=== PATIENT | female | born 1955 | race Caucasian/White ===

== ENCOUNTER 2019-07-07 15:28 | Inpatient (IN) ==
[2019-07-07] MEDS ORDERED: NS 1,000 ML IV PRN (15:54)
--- NOTE | 2019-07-07 15:55 | Diag Imaging Result Doc PS360 ---
EXAM: CT HEAD W/O CONTRAST HISTORY: stroke like s/s TECHNIQUE: CT head without contrast COMPARISON: 01/16/2019 FINDINGS: No parenchymal hemorrhage. No epidural or subdural hematoma. No subarachnoid hemorrhage. No mass identified on this noncontrasted exam. No hydrocephalus. No sinus opacification. IMPRESSION: No hemorrhage. Negative brain CT without contrast. This exam was performed using automated exposure control, adjustment of mA or kV according to patient size, and/or use of iterative reconstruction technique. Electronically signed by Liban Noel 07/07/2019 3:53 PM
--- NOTE | 2019-07-07 16:11 | Diag Imaging Result Doc PS360 ---
EXAM: CHEST-PORTABLE 07/07/2019 HISTORY: stroke like symptoms TECHNIQUE: AP portable semierect at 1604 COMMENT: The inspiration is suboptimal. Considering the degree of inspiration compared to 01/18/2019 there has been no significant change. IMPRESSION: Stable chest. Electronically signed by Giles Moore 07/07/2019 4:08 PM
[2019-07-07 17:17] LABS: AGAP 12; ALB/GLOB RATIO 1.5; ALBUMIN 3.6 g/dL (3.5-5.0); ALKALINE PHOSPHATASE 67 U/L (32-104); BUN 18 mg/dL (8-22); CALCIUM 8.8 mg/dL (8.8-10.2); CHLORIDE 104 mmol/L (98-107); COSMO 273; CREATININE 0.9 mg/dL (0.5-0.9); ESTIMATED GFR > 60; GLUCOSE 90 mg/dL (70-104); GOT 65 U/L (10-30); GPT 31 U/L (10-36); POTASSIUM 4.2 mmol/L (3.5-5.1); SODIUM 136 mmol/L (136-145); TCO2 20 mmol/L (25-35); TOTAL BILIRUBIN 0.34 mg/dL (0.20-1.00)
--- NOTE | 2019-07-07 18:04 | EKG Report ---
Test Performed on : 07/07/2019 3:51:51 PM Test Reason : Stroke like symptoms Blood Pressure : / mmHG Vent. Rate : 084 BPM Atrial Rate : 084 BPM P-R Int : 198 ms QRS Dur : 086 ms QT Int : 370 ms P-R-T Axes : 037 008 -25 degrees QTc Int : 437 ms Normal sinus rhythm. Nonspecific ST and T wave abnormality Abnormal ECG When compared with ECG of 16-JAN-2019 01:13, ST now depressed in Inferior leads Nonspecific T wave abnormality now evident in Inferior leads Nonspecific T wave abnormality, worse in Anterolateral leads Unconfirmed Result
--- NOTE | 2019-07-07 19:10 | PROVIDER DOCUMENTATION ---
This chart was entered by Otto Man Scribe, acting as scribe for Demarcus Sandhu MD. HPI-Neurological Disorder - General Source: patient, EMS - History of Present Illness-Neuro Severity: reports: moderate Onset/Duration: reports: 1-3 hours ago Timing: reports: still present Context: reports: found unresponsive by custodial staff (Home health, Physical therapist) Character of Altered Mental Status: reports: disoriented, confused, trouble concentrating, decreased responsiveness Any recent trauma/injury?: reports: other (Unsure) Character of Deficits: reports: altered sensation, impaired speech, decreased ability to stand, decreased ability to walk Cognitive Baseline: alert but confused Gait Baseline: walks without assistance Associated Symptoms: reports: decreased ability to walk or stand, confusion, slurred speech, weakness Similar Symptoms Previously?: No Recently seen or treated by another doctor?: No <Demarcus Sandhu - Last Filed: 07/07/19 19:09> <Cory Terry - Last Filed: 07/07/19 23:17> - General Chief Complaint: Stroke-Like Symptoms Stated Complaint: stroke like sx Time Seen by Provider: 07/07/19 15:44 Allergies/Adverse Reactions: Patient Allergies Allergy/AdvReac Type Severity Reaction Status Date / Time No Known Allergies Allergy Verified 07/07/19 18:37 Home Medications: Home Medication List Medication Instructions Recorded Confirmed Last Taken Type Clopidogrel Bisulfate [Plavix] 75 mg PO DAILY 11/16/13 04/13/18 04/09/18 History Levothyroxine [Synthroid] 50 mcg PO DAILY 04/01/15 04/10/18 04/10/18 09:00 History ATORVAstatin [Lipitor] 20 mg PO HS 01/03/18 04/10/18 04/09/18 History Divalproex E.r. [Depakote ER] 1,500 mg PO QHS 01/03/18 04/10/18 04/09/18 History Insulin Lispro [Humalog] 1 dose SQ DIRECTED 01/03/18 04/13/18 01/03/18 08:00 History Metformin HCl 500 mg PO BID 01/03/18 04/10/18 04/10/18 09:00 History Paroxetine HCl 40 mg PO DAILY 01/03/18 04/10/18 04/10/18 09:00 History Primidone 50 mg PO BID 01/03/18 04/10/18 04/09/18 History Duloxetine HCl [Cymbalta] 30 mg PO BID 04/10/18 04/13/18 04/09/18 History Furosemide 20 mg PO DAILY 04/10/18 04/10/18 04/10/18 09:00 History Gabapentin 600 mg PO QHS 04/10/18 04/10/18 04/09/18 History Pantoprazole Sodium 40 mg PO DAILY 04/10/18 04/10/18 04/10/18 History Quetiapine Fumarate 600 mg PO QHS 04/10/18 04/13/18 04/09/18 History Omeprazole [Prilosec] 20 mg PO DAILY@0700 04/13/18 04/13/18 Unknown History Albuterol 2.5MG/Ipratrop 0.5MG 3 ml INH Q2H PRN PRN neb 04/19/18 Unknown Rx [Duoneb (A & A)] Albuterol 2.5MG/Ipratrop 0.5MG 3 ml INH RTQ4H neb 04/19/18 Unknown Rx [Duoneb (A & A)] Benzonatate [Tessalon] 100 mg PO 0900,1500,2100 #40 cap 04/19/18 Unknown Rx Bisacodyl [Dulcolax] 10 mg NC DAILY supp 04/19/18 Unknown Rx Budesonide/Formoterol Inhaler 2 puff INH RTBID inhaler 04/19/18 Unknown Rx [Symbicort 160/4.5 Microgm Inhaler] Chlorhexidine Gluconate [Peridex] 15 ml MT BID udc 04/19/18 Unknown Rx Clonazepam 0.5 mg PO QHS #30 tab 04/19/18 Unknown Rx Dimethicone/Oxybenzone [place] 1 gm TOP PRN PRN stick 04/19/18 Unknown Rx [Blistex Medicated Hernandez Lip [place]] Duloxetine [Cymbalta] 30 mg PO BID capsule 04/19/18 Unknown Rx Ferrous Sulfate 325 mg PO DAILY tablet 04/19/18 Unknown Rx Loratadine [Claritin] 10 mg PO DAILY tablet 04/19/18 Unknown Rx Metoprolol Succinate E.r. [Toprol 50 mg PO BID tablet 04/19/18 Unknown Rx Xl] Montelukast [Singulair] 10 mg PO HS tablet 04/19/18 Unknown Rx Oxycodone I.r. [Oxy Ir] 5 mg PO Q3H PRN PRN #40 tab 04/19/18 Unknown Rx Phenol 1.4% [place] [Chloraseptic 1 applic MT PRN PRN bottle 04/19/18 Unknown Rx [place]] Polyethylene Glycol 3350 [Miralax] 17 gm PO BID powder, packet 04/19/18 Unknown Rx - History of Present Illness-Neuro Nature of Presenting Problem: Pt is a 64 yof who presents to the ED via EMS with a CC of stroke like symptoms. EMS reports the pt was supposed to have home health knee rehabilitation today and states the physical therapist called one hour prior to her appointment. The physical therapist states the pt's voice was normal during their phone conversation. Upon arrival to the pt's house, EMS reports the Physical therapist found the pt lying behind the door unresponsive. EMS reports the physical therapist called EMS at approximately 1330. EMS reports they found the pt confused, with slurred speech and left sided weakness. Upon examination in the ED the pt had bilateral pronator drift in her upper extremities and weak lifting, bilaterally, in her lower extremities. The pt also has an abrasion to the right foot, EMS states it is from her fall at home. (Demarcus Sandhu) Review of Systems - Adult - REVIEW OF SYSTEMS - ADULT Constitutional: reports: see HPI Eyes: reports: see HPI Ears, Nose, Mouth & Throat: reports: no symptoms reported Cardiovascular: reports: no symptoms reported Respiratory: reports: no symptoms reported Gastrointestinal: reports: no symptoms reported Genitourinary: reports: no symptoms reported Musculoskeletal: reports: see HPI, joint pain Integumentary: reports: no symptoms reported Neurological: reports: see HPI, slurred speech Psychiatric: reports: no symptoms reported Endocrine: reports: no symptoms reported Hematologic/Lymphatic: reports: no symptoms reported Allergic/Immunologic: reports: no symptoms reported All Other Systems: Reviewed and Negative <Demarcus Sandhu - Last Filed: 07/07/19 19:09> Past History - Adult - PAST MEDICAL HISTORY-ADULT Review of Records: reports: Old Records Reviewed, Nursing Assessment Review, Medications Reviewed, Social history reviewed & non-contributory. Major Childhood Illnesses: reports: denies history Cardiovascular: reports: HTN, hyperlipidemia, other (2 stents) Respiratory: reports: denies history Gastrointestinal: reports: GERD Obstetrical/Gynecological: reports: denies history Genitourinary: reports: kidney disease Musculoskeletal: reports: chronic pain Neurological: reports: denies history Psychiatric: reports: depression Endocrine/Immune: reports: Diabetes, thyroid disorder Other Conditions: reports: other (chronic neck and back pain.) - PRIOR SURGERIES/PROCEDURES Surgical/Procedure History: reports: cardiac stent, hysterectomy, tonsillectomy, other (2 cardiac stents) - PRIOR HOSPITALIZATIONS Prior Hospitalizations: reports: none - IMMUNIZATION STATUS Childhood Immunizations: See Nurse Assessment Flu Vaccine: See Nurse Assessment - FAMILY HISTORY Family History: reviewed, not pertinent - SOCIAL HISTORY Smoking: non-smoker, quit greater than 1 year Substance Use: none/never, denies Alcohol Use Frequency: never <Demarcus Sandhu - Last Filed: 07/07/19 19:09> Physical Exam- Neurological - Physical Exam-Neuro Exam Limited by: Pt's condition Initial Vital Signs Reviewed: Yes General Appearance: mild distress, slow to respond Eye Exam: bilateral eye: PERRL HENMT: moist mucous membranes Head Injury: no evidence of injury Neck: non-tender, full range of motion, other (Limited due to pt's condition) Respiratory: chest non-tender, lungs clear, normal breath sounds, no pleuratic chest pain, no respiratory distress Cardiovascular: normal peripheral pulses, regular rate, rhythm, no edema, no gallop, no JVD Abdominal Exam: non tender, soft Extremity: erythema, other (Abrasion to the right foot; Limited due to pt's condition) [facility] consultant Exam: abnormal speech, other (Limited due to pt's condition) Motor/Sensory: pronator drift (R), pronator drift (L), weak motor strength RLE, weak motor strength LLE Neurologic: sensory deficit Integumentary: normal color, warm/dry <Demarcus Sandhu - Last Filed: 07/07/19 19:09> Progress - PLAN OF CARE/RESULTS Result Diagrams: 07/07/19 16:03 07/07/19 16:03 - EKG 1 Time of EKG reading by physician:: 15:56 EKG Read and Signed by:: Demarcus Sandhu EKG Interpretation (*Must complete 3 of following elements*): Abnormal (Nonspecific ST and T wave abnormality) Rate: 84 Rhythm: NSR [place]: normal QRS: normal NC Interval: normal ST Wave: non-specific ST changes - CHANGE OF SHIFT REPORT (ED Provider) 1 Report Given and Care Transferred to:: [facility] Time of Transfer: 19:09 <Demarcus Sandhu - Last Filed: 07/07/19 19:09> - PLAN OF CARE/RESULTS Result Diagrams: 07/07/19 19:55 07/07/19 16:03 <Cory Terry - Last Filed: 07/07/19 23:17> - PLAN OF CARE/RESULTS Progress/Plan/Lab Results: Vital Signs - 8 hr 07/07/19 15:49 07/07/19 15:50 07/07/19 15:51 Temperature Pulse Rate 84 85 Respiratory Rate 14 23 Blood Pressure 88/56 O2 Sat by Pulse Oximetry 95 92 L 07/07/19 15:56 07/07/19 16:00 07/07/19 16:10 Temperature Pulse Rate 84 84 83 Respiratory Rate 11 L 22 11 L Blood Pressure 98/63 O2 Sat by Pulse Oximetry 96 96 95 07/07/19 16:20 07/07/19 16:30 07/07/19 16:39 Temperature 97.6 F Pulse Rate 82 82 83 Respiratory Rate 17 10 L 16 Blood Pressure 98/63 O2 Sat by Pulse Oximetry 96 98 95 07/07/19 16:40 07/07/19 16:49 07/07/19 16:50 Temperature Pulse Rate 82 83 82 Respiratory Rate 10 L 14 10 L Blood Pressure 96/62 O2 Sat by Pulse Oximetry 97 96 96 07/07/19 17:00 07/07/19 17:02 07/07/19 17:10 Temperature Pulse Rate 82 83 83 Respiratory Rate 20 18 13 Blood Pressure 94/65 O2 Sat by Pulse Oximetry 91 L 98 96 07/07/19 17:20 07/07/19 17:30 07/07/19 17:32 Temperature Pulse Rate 82 83 83 Respiratory Rate 20 9 L 9 L Blood Pressure 115/82 O2 Sat by Pulse Oximetry 93 L 96 96 07/07/19 17:40 07/07/19 17:50 07/07/19 18:00 Temperature Pulse Rate 83 84 83 Respiratory Rate 11 L 21 13 Blood Pressure O2 Sat by Pulse Oximetry 95 93 L 97 07/07/19 18:03 07/07/19 18:10 07/07/19 18:20 Temperature Pulse Rate 84 85 87 Respiratory Rate 22 14 18 Blood Pressure O2 Sat by Pulse Oximetry 88 L 95 89 L 07/07/19 18:27 07/07/19 18:30 07/07/19 18:32 Temperature Pulse Rate 86 86 86 Respiratory Rate 18 15 13 Blood Pressure 108/79 122/78 O2 Sat by Pulse Oximetry 97 100 99 07/07/19 18:35 07/07/19 19:02 07/07/19 20:00 Temperature 97.7 F Pulse Rate 85 84 69 Respiratory Rate 14 16 18 Blood Pressure 108/79 133/75 O2 Sat by Pulse Oximetry 100 98 07/07/19 21:14 Temperature Pulse Rate Respiratory Rate Blood Pressure 114/91 O2 Sat by Pulse Oximetry Laboratory Results - last 24 hr 07/07/19 07/07/19 07/07/19 16:03 16:03 16:03 WBC Cancelled RBC Cancelled Hgb Cancelled Hct Cancelled MCV Cancelled MCH Cancelled MCHC Cancelled RDW Std Deviation Cancelled Plt Count Cancelled MPV Cancelled Immature Gran % (Auto) Cancelled Neut % (Auto) Cancelled Lymph % (Auto) Cancelled [place] % (Auto) Cancelled Eos % (Auto) Cancelled Baso % (Auto) Cancelled Immature Gran # (Auto) Cancelled Neut # (Auto) Cancelled Lymph # (Auto) Cancelled [place] # (Auto) Cancelled Eos # (Auto) Cancelled Baso # (Auto) Cancelled Corrected WBC (Man) Cancelled PT Cancelled INR Cancelled PTT (Actin FS) Cancelled Sodium 136 Potassium 4.2 Chloride 104 Carbon Dioxide 20 L Anion Gap 12 BUN 18 Creatinine 0.9 Estimated GFR/1.73 m2 > 60 BUN/Creatinine Ratio 20 Glucose 90 POC Glucose Calculated Osmolality 273 Calcium 8.8 Total Bilirubin 0.34 AST 65 H ALT 31 Alkaline Phosphatase 67 Troponin T Total Protein 6.0 L Albumin 3.6 Globulin 2.4 Albumin/Globulin Ratio 1.5 Urine Source Urine Color Urine Turbidity Urine pH Ur Specific [place] Urine Protein Ur Glucose (Stick) Ur Ketones (Stick) Urine Blood Urine Nitrite Urine Bilirubin Urobilinogen Dipstick Urine Leukocytes Urine WBC (Auto) Urine RBC (Auto) U Epithel Cells (Auto) Urine Bacteria (Auto) Urine Opiates Screen Ur Oxycodone Screen Ur Methadone, Qual Ur Barbiturates Screen Ur Phencyclidine Scrn Ur Amphetamines Screen U Benzodiazepines Scrn Urine Cocaine Screen U Cannabinoids Screen 07/07/19 07/07/19 07/07/19 16:03 16:44 19:40 WBC RBC Hgb Hct MCV MCH MCHC RDW Std Deviation Plt Count MPV Immature Gran % (Auto) Neut % (Auto) Lymph % (Auto) [place] % (Auto) Eos % (Auto) Baso % (Auto) Immature Gran # (Auto) Neut # (Auto) Lymph # (Auto) [place] # (Auto) Eos # (Auto) Baso # (Auto) Corrected WBC (Man) PT INR PTT ([place] FS) Sodium Potassium Chloride Carbon Dioxide Anion Gap BUN Creatinine Estimated GFR/1.73 m2 BUN/Creatinine Ratio Glucose POC Glucose 92 Calculated Osmolality Calcium Total Bilirubin AST ALT Alkaline Phosphatase Troponin T 0.025 Total Protein Albumin Globulin Albumin/Globulin Ratio Urine Source CATH Urine Color YELLOW Urine Turbidity CLEAR Urine pH 6.0 Ur Specific [place] 1.010 Urine Protein NEGATIVE Ur Glucose (Stick) NEGATIVE Ur Ketones (Stick) NEGATIVE Urine Blood NEGATIVE Urine Nitrite NEGATIVE Urine Bilirubin NEGATIVE Urobilinogen Dipstick NORMAL Urine Leukocytes MODERATE A Urine WBC (Auto) 20-40 A Urine RBC (Auto) <10 U Epithel Cells (Auto) <10 Urine Bacteria (Auto) 4+ Urine Opiates Screen Ur Oxycodone Screen Ur Methadone, Qual Ur Barbiturates Screen Ur Phencyclidine Scrn Ur Amphetamines Screen U Benzodiazepines Scrn Urine Cocaine Screen U Cannabinoids Screen 07/07/19 07/07/19 19:40 19:55 WBC 8.80 RBC 3.45 L Hgb 10.7 L Hct 31.6 L MCV 91.6 MCH 31.0 MCHC 33.9 RDW Std Deviation 14.6 H Plt Count 212 MPV 11.0 H Immature Gran % (Auto) 0.8 H Neut % (Auto) 47.0 Lymph % (Auto) 32.2 [place] % (Auto) 18.8 H Eos % (Auto) 1.0 Baso % (Auto) 0.2 Immature Gran # (Auto) 0.07 H Neut # (Auto) 4.14 Lymph # (Auto) 2.83 [place] # (Auto) 1.65 H Eos # (Auto) 0.09 Baso # (Auto) 0.02 Corrected WBC (Man) PT INR PTT ([place] FS) Sodium Potassium Chloride Carbon Dioxide Anion Gap BUN Creatinine Estimated GFR/1.73 m2 BUN/Creatinine Ratio Glucose POC Glucose Calculated Osmolality Calcium Total Bilirubin AST ALT Alkaline Phosphatase Troponin T Total Protein Albumin Globulin Albumin/Globulin Ratio Urine Source Urine Color Urine Turbidity Urine pH Ur Specific [place] Urine Protein Ur Glucose (Stick) Ur Ketones (Stick) Urine Blood Urine Nitrite Urine Bilirubin Urobilinogen Dipstick Urine Leukocytes Urine WBC (Auto) Urine RBC (Auto) U Epithel Cells (Auto) Urine Bacteria (Auto) Urine Opiates Screen PRESUMPTIVE POSITIVE A Ur Oxycodone Screen NONE DETECTED Ur Methadone, Qual NONE DETECTED Ur Barbiturates Screen PRESUMPTIVE POSITIVE A Ur Phencyclidine Scrn NONE DETECTED Ur Amphetamines Screen NONE DETECTED U Benzodiazepines Scrn NONE DETECTED Urine Cocaine Screen NONE DETECTED U Cannabinoids Screen NONE DETECTED Orders Category Date Time Status Cardiac Monitoring DIRECTED Care 07/07/19 15:54 Active Finger Stick Blood Sugar (ED) DIRECTED Care 07/07/19 15:54 Active Misc. NRSG Communication Order DIRECTED Care 07/07/19 15:54 Active Saline Loc NOW Care 07/07/19 15:54 Active CHEST-PORTABLE [RAD] Stat Exams 07/07/19 15:[address] HEAD W/O CONTRAST [CT] Stat Exams 07/07/19 15:32 Completed CBC WITH ELECTRONIC DIFF [HEME] Stat Lab 07/07/19 19:55 Completed COMPREHENSIVE METABOLIC PANEL [CHEM] Stat Lab 07/07/19 16:03 Completed PROTIME WITH INR [COAG] Stat Lab 07/07/19 17:20 Ordered PTT [COAG] Stat Lab 07/07/19 17:20 Ordered TROPONIN T Stat Lab 07/07/19 16:03 Completed URINALYSIS W/POSS RFLX CULT [URINALYSIS] Stat Lab 07/07/19 19:40 Completed URINE CULTURE [RM] Routine Lab 07/07/19 20:11 Received URINE DRUG SCREEN Stat Lab 07/07/19 19:40 Completed 0.9% Sodium Chloride Inj [Ns] 1,000 ml Med 07/07/19 15:54 Active IV 75 mls/hr EKG [EKG] Stat Ther 07/07/19 15:54 Draft She ws accessed in [facility], filled 60 [place] 10 mg on 02/08, 03/08, 04/05, ,, ,, and 07/01 (Demarcus Sandhu) Departure - Departure Date of Disposition Decision: 07/07/19 Certified Medical Emergency: Emergent <Demarcus Sandhu - Last Filed: 07/07/19 19:09> - Departure Time of Disposition Decision: 23:16 - Critical Care Note This patient required my direct & personal management of CC.: No <Cory TerryTracee - Last Filed: 07/07/19 23:17> - Departure DIAGNOSIS: Syncope Qualifiers: Syncope type: unspecified Qualified Code(s): R55 - Syncope and collapse Disposition: ADMITTED INPATIENT 09 Condition: Stable Additional Freetext Instructions: ED Follow Up Instructions: You have been treated by a care provider in the Emergency Department. These instructions are being provided to you so you can have an understanding of how to care for yourself upon discharge. Upon discharge from the Emergency Depa rtment, you are responsible for making arrangements for follow-up care by a physician of your choice. Take all prescribed medications as directed. Return to the Emergency Department immediately for any new or worsening symptoms. You may call the Physician Referral phone number at [phone] to obtain a list of Physicians who are taking new patients. Referrals and Follow-Ups: Hill Hilario MD [Primary Care Provider] - Attestation - Physician/ MARSHA Attestation Patient care was provided by Advanced Practice Provider:: No The physician spent face to face time with patient:: Yes Advanced Practice Provider documentation review:: Supervising physician onsite and consulted in the evaluation and care of this patient. The physician did have a face to face encounter with the patient. <Demarcus Sandhu - Last Filed: 07/07/19 19:09> - NIH Stroke Scale Level of Consciousness: 1-Drowsy, but arousable with minimal stimulation LOC Questions (ask month and age): 1-Answers One Correctly LOC Commands (ask to open & close eyes;make a fist, let go): 0-Obeys Both Correctly Best Gaze (horizontal eye movement): 0-Normal Visual (use finger movement, counting or visual threat): 0-No Visual Loss Facial Palsy (show teeth or raise eyebrows & close eyes tght: 0-Symmetrical Mo vement Motor Function-left arm: 0-Normal Motor Function-right arm: 0-Normal Motor Function-left le-Normal Motor Function-right le-Normal Limb Ataxia([id number], or heel to mckeon): 0-No Ataxia Sensory(pin prick to face,arms,trunk,legs-compare side/side): 0-No Ataxia Best Language(name item/read sentence.Ex-Down to Earth): 0-No Aphasia Dysarthria(Pt read words or say words Ex.Mama,Tip-Top,Thanks: 1-Mild-Mod Slurring Words Extinction and Inattention: 0-Normal <Demarcus Sandhu - Last Filed: 07/07/19 19:09> Stroke tPA Guidelines - Inclusion Criteria for IV tPA 18 years old or older: Yes Ischemic stroke with measurable deficit: No Onset <3 hours ago *OR* 3-4.5 hours ago: Yes - Exclusion Criteria for IV tPA Evidence of intracranial hemorrhage on CT: No Presentation suggest SAH: No CT reveals defined area of hypodensity: No Evidence of AVM, neoplasm, aneurysm: No Seizure at stroke onset: Unable to Obtain Active internal bleeding or acute trauma: Unable to Obtain Platelet Count Less Than 100,000: No Heparin Within Last 48 HRS (PTT >Lab normal limits): No INR > 1.7 (warfarin use): No Arterial Puncture Within Last 7 Days: No Lumbar Puncture Within Last 7 Days: No - Additional Exclusion Criteria for IV tPA Patient older than 80: No - Relative Contraindications to IV tPA CT reveals extensive area of infarct (>1/3 MCA territory): No Major Surgery or Serious Trauma In Previous 14 Days: No AMI within 3 months: No Gastrointestinal or Urinary Tract hemorrhage in Past 21 Days: No Post - AMI pericarditis: No Blood Glucose Less Than 50 mg/dl or Greater Than 400 mg/dl: No <Demarcus Sandhu - Last Filed: 07/07/19 19:09> This chart was documented by the indicated scribe, (Otto Man, Scribe) and accurately reflects the services I performed and decisions made by , Demarcus Sandhu MD, as attested by the provider's signature.
[2019-07-07 19:51] LABS: URINE SOURCE CATH
[2019-07-07 19:55] LABS: BILIRUBIN URINE NEGATIVE (NEGATIVE); BLOOD URINE NEGATIVE (NEGATIVE); COLOR YELLOW; GLUCOSE URINE NEGATIVE (NEGATIVE); KETONE URINE NEGATIVE (NEGATIVE); LEUKOCYTES URINE MODERATE (NEGATIVE); NITRITE URINE NEGATIVE (NEGATIVE); PROTEIN URINE NEGATIVE (NEGATIVE); TURBIDITY URINE CLEAR (CLEAR); UROBILINOGEN URINE NORMAL (NORMAL)
[2019-07-07 19:57] LABS: UR EPITHELIAL CELLS <10 /HPF (<10); URINE BACTERIA 4+ /HPF; URINE RBC <10 /HPF (<10); URINE WBC 20-40 /HPF (<10)
[2019-07-07 20:00] LABS: BASO# 0.02 X1000 (0.0-0.2); BASO% 0.2 % (0.0-0.8); EOS# 0.09 X1000 (0.0-0.7); HEMATOCRIT 31.6 % (37.0-47.0); HEMOGLOBIN 10.7 g/dL (12.0-16.0); IMM GRAN# 0.07 X1000 (0.0-0.04); IMM GRAN% 0.8 % (0.0-0.5); LYMPH# 2.83 X1000 (1.2-3.4); LYMPH% 32.2 % (20.5-51.1); MCHC 33.9 g/dL (33-37); MCV 91.6 FL (81-99); MONO# 1.65 X1000 (0.11-0.59); MONO% 18.8 % (1.7-9.3); NEUT# 4.14 X1000 (1.4-6.5); PLT 212 X1000 (130-400); RBC 3.45 XMIL (4.2-5.4); RDW 14.6 % (11.5-14.5)
[2019-07-07 20:25] LABS: UR AMPHETAMINES QUAL NONE DETECTED (NONE DETECT); UR BARBITUATES QUAL PRESUMPTIVE POSITIVE (NONE DETECT); UR BENZODIAZEPIN QUAL NONE DETECTED (NONE DETECT); UR CANNABINOIDS QUAL NONE DETECTED (NONE DETECT); UR COCAINE QUAL NONE DETECTED (NONE DETECT); UR METHADONE QUAL NONE DETECTED (NONE DETECT); UR OPIATES QUAL PRESUMPTIVE POSITIVE (NONE DETECT); UR OXYCODONE QUAL NONE DETECTED (NONE DETECT); UR PCP QUAL NONE DETECTED (NONE DETECT)
--- NOTE | 2019-07-08 01:12 | HISTORY AND PHYSICAL ---
PRIMARY CARE PHYSICIAN: Dr. Hill Hilario. REASON FOR ADMISSION: Fall. PRESENT ILLNESS: Ms. Stephany Garcia is a 64-year-old woman with past medical history of type 2 diabetes, hypothyroidism, coronary artery disease status post PCI, hypertension, paroxysmal ventricular tachycardia, bipolar disorder, anxiety. I must state for the record that the patient is an extremely poor historian and there are huge discrepancies with this patient's history versus the history given by the home health agent. It is riddled with many inconsistencies, so I would employ anybody to take this history with a warehouse of salt. According to the patient, she heard that her home health nurse was at the door and she tried to get to the door, and missed her footing, hit her head against the door and what follows after this is somewhat very confusing. She said the home health agent was banging at the door and she was banging back and eventually some how she opened the door for him and he got onto the chair, and moved from her to another chair, which was uncomfortable. She said she was fully aware and alert when the EMS picked her up and brought her to the hospital. Other than having a little headache, and pain in her knees and foot, she has no other complaints. She denies any antecedent palpitations, chest pain, or shortness of breath. She denies any focal weakness, numbness, or tingling. On the other hand, the home health agent says that she opened the door and found the patient was unresponsive and called EMS, and it was stated that EMS concurred with the story of the home health agent and patient was unresponsive. On arrival to the ER, she had slurred speech and very confused for the first 30 minutes. Currently, she is back to her baseline. She denies any focal symptoms of a neurological nature. REVIEW OF SYSTEMS: No dysuria. No hesitancy or genitourinary complaints. No GI complaints. No upper respiratory complaints. No polyuria or polydipsia. Otherwise, a very limited review of systems. ALLERGIES: No known allergies. MEDICATIONS: Have not been reconciled. FAMILY HISTORY: Brother has heart disease. Nobody with diabetes in the family. SURGICAL HISTORY: Hysterectomy. SOCIAL HISTORY: Lives alone. Does not smoke, drink, or use drugs. IMAGING DATA: 1. Electrocardiogram reviewed by me showed normal sinus rhythm, probably nonspecific ST-wave changes in the inferolateral leads. 2. CT head showed notable acute intracranial process. 3. Chest film, poor inspiratory effort but no gross findings. LABORATORY WORK: White count 8,000, hemoglobin and hematocrit 10 and 31, platelets 212,000. Normal differential. BUN 18, creatinine 0.9. AST 65, ALT 31. UDS positive for barbiturates and opiates. Urinalysis 4+ bacteria, 20 to 40 white cells. PHYSICAL EXAMINATION: GENERAL: Obese, middle-aged woman who appears older than stated age. VITAL SIGNS: Blood pressure is 135/75, heart rate 84, respirations 16, temperature 97.7 degrees, O2 sats 98% on room air. GENERAL APPEARANCE: She is alert and oriented to person, time, and a little bit off on place. HEENT: Head is normocephalic, atraumatic. Eyes: SIA, EOMI. Anicteric and not pale. ENT: Oropharynx is within normal limits. No central cyanosis. NEUROLOGICAL: Cranial nerves 2-12 are grossly intact. No gross focal deficits. No focal sensory motor deficits. The patient has a slight tremor in her left arm when it is outstretched. No pronator drift. Power is 4/4 all extremities. NECK: Supple. No JVD or carotid bruit. No thyromegaly. CHEST: Clear when auscultated both lung parsons. CARDIOVASCULAR: First and 2nd heart sounds heard. No gallops, murmurs, rubs. Rhythm is regular. ABDOMEN: Protuberant, soft, nontender. No mass, megaly. Bowel sounds normal. Rectal exam deferred at this time. EXTREMITIES: Patient has good distal pulse volumes, which are symmetrical and regular. No edema, clubbing, or peripheral cyanosis. SKIN: Intact. No breakdown, lesions, or erythema. MUSCULOSKELETAL: Grossly normal. ASSESSMENT: 1. Very probable syncopal episode versus generalized seizure event. 2. Coronary artery disease. 3. Hypothyroidism. 4. Hypertension. 5. Type 2 diabetes. 6. Pyuria. 7. Anemia of chronic inflammation. PLAN: Patient will be admitted to our step-down unit, PVC. It is more likely that this could be cardiac in nature due to the fact she has underlying cardiac disease and she has a prior history of paroxysmal ventricular tachycardia. Her old records suggest she takes a lot of antipsychotic medications which could induce QT prolongation and ventricular tachycardia. We will monitor patient's telemetry for the next 48 hours and will repeat another echocardiogram, and suggest may be that the patient undergo a stress test, which may induce arrhythmia. If patient's cardiac workup is unrevealing, an EEG may be repeated. I did review her old records, and it this appears to be very identical to the event she had in 2016, albeit the location being different, i.e. a grocery store. At that time, she had an echo and EEG, and they were negative. Still does not rule out the possibility of an epileptiform etiology, although for me, cardiac disease is higher up. It is also possible the patient could be misusing her home medications inappropriately, she does have opioids and barbiturates in her urine drug screen, so that possibility should be entertained also. We will do anemia workup amongst other things, and hydrate patient and see how she responds to this. Will consult Cardiology, and if cardiac workup is unrevealing, then consider Neurology consult. We will also order an MRI to make sure she does not have any structural brain disease. cc: Hazel Braden MD
[2019-07-08] MEDS ORDERED: ZOFRAN IV PRN (01:58)
[2019-07-08] MEDS ORDERED: MELATONIN PO ONE (01:58)
[2019-07-08] MEDS ORDERED: TYLENOL PO PRN (01:58)
[2019-07-08] MEDS ORDERED: NS 1,000 ML IV SCH (01:58)
[2019-07-08] MEDS: LOVENOX SUBQ SCH (02:33)
[2019-07-08 02:51] LABS: AGAP 10; BUN 12 mg/dL (8-22); CALCIUM 8.9 mg/dL (8.8-10.2); CHLORIDE 103 mmol/L (98-107); COSMO 276; CREATININE 0.7 mg/dL (0.5-0.9); ESTIMATED GFR > 60; GLUCOSE 110 mg/dL (70-104); POTASSIUM 3.3 mmol/L (3.5-5.1); SODIUM 138 mmol/L (136-145); TCO2 25 mmol/L (25-35)
[2019-07-08] MEDS ORDERED: BLISTEX MEDICATED BERRY LIP BALM TOP PRN (04:26)
[2019-07-08 07:16] LABS: BASO# 0.03 X1000 (0.0-0.2); BASO% 0.3 % (0.0-0.8); EOS# 0.13 X1000 (0.0-0.7); EOS% 1.5 % (0.0-10.0); HEMATOCRIT 32.8 % (37.0-47.0); HEMOGLOBIN 10.8 g/dL (12.0-16.0); IMM GRAN# 0.05 X1000 (0.0-0.04); IMM GRAN% 0.6 % (0.0-0.5); LYMPH# 2.36 X1000 (1.2-3.4); LYMPH% 27.1 % (20.5-51.1); MCHC 32.9 g/dL (33-37); MCV 91.1 FL (81-99); MONO# 1.81 X1000 (0.11-0.59); MONO% 20.8 % (1.7-9.3); MPV 10.9 FL (7.4-10.4); NEUT# 4.34 X1000 (1.4-6.5); NEUT% 49.7 % (42.2-75.2); PLT 208 X1000 (130-400); RDW 14.9 % (11.5-14.5); WBC 8.72 X1000 (4.8-10.8)
[2019-07-08 07:30] LABS: HEMOGLOBIN A1C 5.4 % (4.8-6.0)
[2019-07-08 07:31] LABS: MAGNESIUM 1.7 mg/dL (1.5-2.7)
[2019-07-08 07:49] LABS: TSH 4.67 uIUmL (0.27-4.20)
--- NOTE | 2019-07-08 09:59 | PROGRESS NOTE ---
DATE: 07/08/2019 SUBJECTIVE: This morning Ms. Garcia refers to be doing a little better. Still complaining of pain in the right knee and the ankle. Ms. Garcia was admitted yesterday mainly because of fall and slurred speech and concern for possible stroke. Upon presenting to the emergency department, she was noted to have a blood pressure of 88/56 with normal pulse. OBJECTIVE: Vital Signs: This morning, her blood pressure is up to 135/57, pulse of 83, respirations 16, temperature is 97.6 degrees. The patient is saturating about 94% on room air. General: Ms. Garcia is a 64-year-old, elderly female. She is in bed, no distress. HEENT: Mucosa is pink and moist. Anicteric. Acyanotic. Neck: Neck is supple. Chest: Good air entry bilateral. There were no crepitations. Cardiovascular: Regular rate and rhythm. Abdomen: Is soft, distended, but nontender. Bowel sounds present. Extremities: No pedal edema. The right lower extremity is tender in the ankle as well as the knee. There is some bruise over the right knee and some crusted blood over the right big toe. No obvious dislocation or obvious fracture on clinical exam. SHE[employer] INST[employer]ER: Patient is awake, alert, oriented to person and to place but disoriented to time, but follow basic commands. She seems to have some baseline dementia. LABORATORY DATA: WBC is 8.72, hemoglobin is 10.8, platelet count of 208,000. Chemistry is also reviewed and is unremarkable. Troponins have been followed twice, is normal. TSH is 4.67. ASSESSMENT: 1. Status post mechanical fall. It appears patient probably had a syncopal episode. 2. Hypotension on presentation. We think it is a combination of blood pressure medication and multiple psychotropic and opioid medications at home. These were all withheld on presentation. This morning we are going to restart some of her medications to prevent any withdrawal. We will however withhold back on the lisinopril. 3. History of coronary artery disease. We will continue with her home medicine. 4. Hypertension/diabetes/dyslipidemia will all be controlled. 5. Chronic pain syndrome on chronic opioid use. The patient follows up with Dr. Mik Rawls. PLAN: So in general Ms. Garcia seems to be doing okay, no neurological deficit. Speech Clear. I do not think she had any stroke or TIA. I think she probably became hypotensive either because of her medications or volume depletion and then syncopized. She is currently hurting in the right knee and the ankle. We will x-ray it. Will also control her pain. Get physical therapy to work with her, re-evaluate her in the morning. Hopefully, we can get her home tomorrow. cc: Simon Burgess MD MTDD
[2019-07-08] MEDS: CELEBREX PO SCH (10:01)
--- NOTE | 2019-07-08 11:17 | CARDIOLOGY CONSULTATION ---
DATE: 07/08/2019 REASON FOR CONSULTATION: Cardiology was consulted for known coronary artery disease. Patient has multiple frequent falls. No gilles syncope. HISTORY OF PRESENT ILLNESS: Ms. Stephany Garcia is a 64-year-old lady who has had coronary artery disease, stent placement in the past. Has multiple medical problems in addition to hypertension, diabetes, dyslipidemia. She has had chronic pain syndrome. She was at the door at her place of residence when she fell, she could not apparently open the door and she was confused as well. She did not lose any consciousness. She was aware of all the time as to what was going on. I discussed this with her son as well. Of late, she has had multiple medication changes as far as her psychiatric medications are concerned, and that has caused some confusion with the patient's mental status as well. However, she fell, she complains of having chronic back and lower extremity discomfort. She does not complain of chest pain suggestive of angina. She is followed up in our office and has had a recent to followup as well. She has a known stent placement. The patient was brought by EMS. When EMS was there, she was noted to have some confusion and difficulty in speech but she was alert and oriented and she has was back to baseline. REVIEW OF SYSTEM: Gastrointestinal: There is no history of nausea, vomiting, diarrhea. There is no history of hematemesis or melena. Central nervous system: No focal weakness to suggest is definite CVA or TIA. There is a question of confusion. There are no palpitations. There is no dizziness; however, with the change in medications at home, she was noted to be having some confusion as well. She has had frequent falls. PAST MEDICAL HISTORY: 1. Coronary artery disease, stent placement to circumflex artery. 2. Bipolar disorder. 3. Anxiety disorder. 4. Hypothyroidism. 5. Type 2 diabetes. 6. Hypertension. 7. Hysterectomy. HOME MEDICATIONS: Include bupropion, metoprolol 50 b.i.d., lisinopril 5 mg a day, ferrous sulfate 325, quetiapine fumarate 400 mg a day, gabapentin 600, Depakote 1500 mg before bedtime, primidone 50 mg p.o. b.i.d., metformin 500 b.i.d., atorvastatin 40, levothyroxine 75, Plavix 75. ALLERGIES: She is not known to be allergic to any medication. PHYSICAL EXAMINATION: Vital Signs: Blood pressure 131/63. Cardiovascular System: First and second heart sounds were heard. There was faint murmur. Respiratory System: Normal air entry. There are no crepitations or rhonchi. Abdomen: Soft, nontender. There was no guarding or rigidity. Bowel sounds were heard. Central nervous system: Alert and oriented. Was moving all 4 extremities. DIAGNOSTIC DATA: Chest x-ray was unremarkable. Electrocardiogram revealed normal sinus rhythm with poor R-wave progression. LABORATORY EXAMINATION: Cardiac enzyme negative. Sodium 138, potassium 4.2, BUN 18, creatinine 0.8. WBC 8.72, hemoglobin 10.8, hematocrit 32.8, platelet count of 208,000. MCV 91, MCH 30, MCHC 32.9. ASSESSMENT AND PLAN: 1. Ms. Stephany Garcia is a 64-year-old lady with history of hypertension, diabetes, psychiatric disorder, coronary artery disease, stent placement to circumflex artery in the past, is admitted with fall. She has not had a gilles syncopal episode. I discussed this with her as well as her son. She was aware of the fall as well. From a cardiac standpoint, her telemetry has been normal, electrocardiogram unremarkable. We will get an echocardiogram. Last cardiac catheterization a couple of years back revealed a patent stent. From a cardiac standpoint, I will not make any changes. She can be discharged home and follow up with Cardiology as an outpatient. 2. Hypertension. Blood pressure is under control. I have not made any changes. 3. Diabetes. Continue with the current medications. She has had chronic pain syndrome with multiple falls and her son is discussing with home health as well as her psychiatrist. He thinks that the significant changes of her medications has contributed to her confusion as well. He will discuss this with the physicians then. Thank you for the consult. We will follow hospital course. cc: Davis Montoya MD
--- NOTE | 2019-07-08 13:13 | ECHO REPORT ---
ORDER DATE: 07/08/2019 INTERPRETING PHYSICIAN: Dr. Davis Montoya ECHOCARDIOGRAPHIC MEASUREMENTS: 1. Interventricular septum: 1.2 cm. 2. Posterior wall: 1.0 cm. 3. Diastolic diameter: 3.9 cm. 4. Left atrium: 3.2 cm. 5. Aortic root: 3.2 cm. SUMMARY OF THE 2-DIMENSIONAL IMAGIN. Aortic valve leaflets are trileaflet. 2. Pulmonic valve was normal. 3. Mitral valve was normal. There is mitral annular calcification. 4. Tricuspid valve was normal. There is mild tricuspid regurgitation. Peak velocity across the tricuspid valve was 2.4 m/sec. 5. Pulmonary artery systolic pressure of 32 mmHg. There is mild left atrial enlargement. 6. There is mild diastolic dysfunction. 7. Peak velocity across the aortic valve was 2.4 m/sec. There is no aortic stenosis; there is mild aortic regurgitation. 8. Normal left ventricular cavity size. Estimated ejection fraction of 70%. There is mild left ventricular hypertrophy. 9. Anterior echo-free space suggestive of pericardial fat pad noted. 10. There is no pericardial effusion or obvious intracardiac mass or thrombus seen. cc: MD Hazel Thacker MD
--- NOTE | 2019-07-08 15:43 | Diag Imaging Result Doc PS360 ---
ANKLE COMPLETE RIGHT - 07/08/2019 INDICATION: trauma to right ankle TECHNIQUE: Three views COMPARISON: 04/10/2018 FINDINGS: Bones are intact and normally aligned. Joint spaces and soft tissues are clear. IMPRESSION: Negative exam. Electronically signed by Matthew López 07/08/2019 3:41 PM
--- NOTE | 2019-07-08 15:44 | Diag Imaging Result Doc PS360 ---
KNEE 1-2 VIEWS-RIGHT - 07/08/2019 INDICATION: trauma to right knee TECHNIQUE: Two views COMPARISON: None FINDINGS: There is a contour deformity of the proximal fibular shaft compatible with a healed fracture. No acute fracture or dislocation. There is mild degenerative chondrocalcinosis of the menisci bilaterally. This indicates early osteoarthritis. Otherwise joint spaces are preserved. No joint effusion. Vascular disease of the popliteal artery. IMPRESSION: Chronic changes. Electronically signed by Matthew López 07/08/2019 3:42 PM
[2019-07-08] MEDS: NORCO-5 PO SCH (20:31)
[2019-07-08] MEDS: LIPITOR PO SCH (20:32)
[2019-07-08] MEDS: LOPRESSOR PO SCH (20:32)
[2019-07-08] MEDS: MYSOLINE PO SCH (20:32)
[2019-07-08] MEDS: NEURONTIN PO SCH (20:32)
[2019-07-08] MEDS: DEPAKOTE ER PO SCH (20:33)
[2019-07-08] MEDS ORDERED: NORCO-10 PO SCH (21:00)
[2019-07-08] MEDS ORDERED: NEURONTIN PO SCH (21:00)
[2019-07-08] MEDS ORDERED: SEROQUEL PO SCH (21:00)
[2019-07-08] MEDS ORDERED: DEPAKOTE ER PO SCH (21:00)
[2019-07-08 21:16] LABS: INR 1.18; PROTIME 15.1 Seconds (11.0-16.0)
[2019-07-09] MEDS: LOVENOX SUBQ SCH (01:23)
[2019-07-09] MEDS: NORCO-5 PO SCH ×2 (08:59→21:18)
[2019-07-09] MEDS: MYSOLINE PO SCH ×2 (09:00→21:19)
[2019-07-09] MEDS: FERROUS SULFATE PO SCH (09:00)
[2019-07-09] MEDS: CELEBREX PO SCH (09:00)
[2019-07-09] MEDS: PLAVIX PO SCH (09:01)
[2019-07-09] MEDS: LOPRESSOR PO SCH ×2 (09:01→21:19)
[2019-07-09] MEDS: WELLBUTRIN XL PO SCH (09:01)
[2019-07-09] MEDS: SYNTHROID PO SCH (11:27)
--- NOTE | 2019-07-09 16:09 | DISCHARGE SUMMARY ---
ADMISSION DATE: 07/07/2019 DISCHARGE DATE: 07/09/2019 DISPOSITION: Home with [facility]. CONSULTATION DURING THIS ADMISSION: Cardiology was consulted. Patient was seen by Dr. Montoya. INVASIVE PROCEDURES DONE DURING THIS ADMISSION: None. IMAGING STUDIES OF SIGNIFICANCE: A CT scan of the head was negative. A chest x-ray was unremarkable. Echocardiogram showed ejection fraction of 70%. An ankle x-ray was negative. X-ray of the knee showed just chronic changes. ADMISSION DIAGNOSIS: 1. Probable syncope. 2. Coronary artery disease. 3. Hypothyroid. 4. Hypertension. DIAGNOSIS AT THE TIME OF DISCHARGE: 1. Status post mechanical fall, likely due to drowsiness and altered mentation from psychotropic medications. 2. Hypotension on presentation. Medications due to medication side effects. 3. Polypharmacy with multiple psychotropic medications. 4. Chronic opioid use. 5. History of coronary artery disease. 6. Diabetes mellitus/hypertension/dyslipidemia. 7. Chronic pain syndrome on opioids. 8. Osteoarthritis of the knee. DISCHARGE MEDICATIONS: 1. Clopidogrel 75 mg p.o. daily. 2. Levothyroxine 75 mcg p.o. daily. 3. Atorvastatin 40 mg p.o. at bedtime. 4. Metformin 500 b.i.d. 5. Primidone 50 mg b.i.d. 6. Iron sulfate 325 p.o. daily. 7. Lisinopril 5 mg p.o. daily. 8. Metoprolol 50 mg b.i.d. 9. Bupropion 300 mg p.o. daily. 10. [place] has been discontinued. 11. Depakote has been reduced to 1000 mg p.o. at bedtime. 12. Seroquel has been reduced to 400 mg p.o. at bedtime. 13. Gabapentin is also reduced to 400 p.o. at bedtime. 14. Celebrex 200 mg p.o. daily. PRESENTING COMPLAINT: Falls. HISTORY OF PRESENTING COMPLAINT: Ms. Garcia is a 64-year-old female who was admitted to this hospital last April because of a fall sustaining a left ankle fracture. The patient was intervened upon and was sent to rehab, seems to have done well and then went back. I understand that she went to see her mental health providers and her medications were up-titrated. Since then, she seems to be falling more. On the day of admission, she was found on the floor, initially unresponsive with some garbled speech and the initial thought was that she might be having a stroke so she was brought in to the emergency department where she was initially evaluated and her mentation seems to be gradually coming back. She was admitted for further medical care and for neurological observation. HOSPITAL COURSE: Ms. Stephany Garcia was admitted to the [facility] on neuro observation. Her mentation continues to progressively get better. She was also found hypotensive so she was adequately fluid resuscitated and her blood pressures became normalized throughout the hospital stay. As I said, her mentation improved. She became more alert and more responsive, more communicative. She did complain of pain in the left ankle and the left knee. X-rays were done and there were no broken bones. Cardiology was consulted initially because of possible syncope and patient was evaluated by Dr. Montoya. Upon questioning more, it became apparent that Ms. Garcia's presentation was mainly due to medication side effects, especially the psychotropic as well as the narcotic combination. Doses have been readjusted. Pain medication has been changed and Ms. Garcia has also been evaluated by physical therapy here. We think she should be okay going back home. She will be with [facility]. I understand this home health agency has a psych nurse that will be able to evaluate her as well. All the discharge instructions have been discussed with Ms. Garcia and she voiced understanding. Time spent for discharge is 35 minutes. cc: Simon Burgess MD
[2019-07-09] MEDS: LIPITOR PO SCH (21:18)
[2019-07-09] MEDS: NEURONTIN PO SCH (21:19)
[2019-07-09] MEDS: DEPAKOTE ER PO SCH (21:19)
[2019-07-09] MEDS: SEROQUEL PO SCH (22:09)
[2019-07-10] MEDS: LOVENOX SUBQ SCH (01:18)
[2019-07-10] MEDS: SYNTHROID PO SCH ×2 (05:54→07:52)
[2019-07-10] MEDS: NORCO-5 PO SCH ×2 (09:29→20:10)
[2019-07-10] MEDS: PLAVIX PO SCH (09:29)
[2019-07-10] MEDS: WELLBUTRIN XL PO SCH (09:29)
[2019-07-10] MEDS: CELEBREX PO SCH (09:29)
[2019-07-10] MEDS: LOPRESSOR PO SCH ×2 (09:29→20:10)
[2019-07-10] MEDS: FERROUS SULFATE PO SCH (09:29)
[2019-07-10] MEDS: MYSOLINE PO SCH ×2 (09:30→20:21)
--- NOTE | 2019-07-10 16:03 | PROGRESS NOTE ---
DATE: 07/10/2019 Ms. Garcia is clinically stable for discharge. However, after speaking with his son today, and expressing his concerns of his mother falling multiple times at home. Social Work has been consulted, and there is a plan to try and see if we can get her to rehab. Of note, Ms. Garcia is also bipolar 1. She has been in other mental health facilities in the past. I understand her medications have been changed, and her son is actually looking into getting a new mental health provider to get her on a more stable regimen that does not cause her to be extremely drowsy and be falling. Ms Garcia did pretty well this morning with physical therapy, and walked about 580 feet without any major complaints. We think she is medically stable for discharge. We are pending final arrangements by Social Work for her safe disposition. cc: Simon Burgess MD
[2019-07-10] MEDS: LIPITOR PO SCH (20:10)
[2019-07-10] MEDS: DEPAKOTE ER PO SCH (20:19)
[2019-07-10] MEDS: SEROQUEL PO SCH (20:20)
[2019-07-10] MEDS: NEURONTIN PO SCH (20:23)
--- NOTE | 2019-07-11 05:01 | DISCHARGE SUMMARY ---
ADMISSION DATE: 07/08/2019 DISCHARGE DATE: ADDENDUM: Ms. Garcia this morning said she was upset that she was not discharged yesterday. We did inform her that her evaluation per the nurses was that she was remarkably hurting in her right ankle and the knee for safe discharge. In any case, this morning she was seen walking with physical therapy on the entire floor without any complaints. We think she is fairly stable for discharge. Her current vitals blood pressure 119/56, pulse of 77, respirations 17, and temperature 97.6 degrees. She is currently completely asymptomatic. Please refer to the details of the PT notes, which is yet to be populated. Also, refer to the details of the discharge summary from yesterday. cc: Simon Burgess MD
[2019-07-11] MEDS: SYNTHROID PO SCH (06:25)
[2019-07-11] MEDS: PLAVIX PO SCH (08:48)
[2019-07-11] MEDS: WELLBUTRIN XL PO SCH (08:48)
[2019-07-11] MEDS: MYSOLINE PO SCH (08:48)
[2019-07-11] MEDS: FERROUS SULFATE PO SCH (08:48)
[2019-07-11] MEDS: LOVENOX SUBQ SCH (08:49)
[2019-07-11] MEDS: LOPRESSOR PO SCH (08:49)
[2019-07-11] MEDS: CELEBREX PO SCH (08:49)
[2019-07-11] MEDS: NORCO-5 PO SCH (08:56)
[2019-07-11 11:52] VITALS: BP 129/53
--- NOTE | 2019-07-11 18:52 | DISCHARGE SUMMARY ---
ADMISSION DATE: 07/08/2019 DISCHARGE DATE: 07/11/2019 DISCHARGE ADDENDUM: Patient's rehab placement was pending, but in the interim the patient's ability to ambulate had improved significantly. Denied for rehab. The patient strongly approves of going home anyway and son on board with discharge home with home health. Lungs essentially CTAB at this point. Will plan on discharging her today. See full discharge summary dated 06/19/2019 for the rest of her hospital course and medications. No further medication changes have been made. [facility]ITAL[facility]ariana
== END 2019-07-11 15:11 | disposition home health service (06) | DRG 312 ==
LOC: SUPCPDRO → ED 15:28 → 2N 07-08 01:19 → SUATTDRO 07-08 01:19 → 1N 07-10 18:54
PROVIDERS: ATTEND Internal Medicine